=== PATIENT | female | born 1995 | race Caucasian/White ===

== ENCOUNTER 2018-11-06 15:18 | Emergency (ER) | payer OTHER ==
[2018-11-06 15:26] VITALS: TEMP 98.5; BMI 30.9
--- NOTE | 2018-11-06 15:56 | PDOC ---
History of Present Illness - General Chief Complaint: Lightheaded Stated Complaint: DIZZNESS Time Seen by Provider: 11/06/18 15:36 History Source: Patient, [employer] Technician Used (#[id number]) Exam Limitations: Clinical Condition - History of Present Illness Initial Comments: 11/06/18 16:13 Patient with history of migraines present with complaint of 4 day history of headache, dizziness, nausea, increased light sensitivity and lightheadedness. Patient reported she was seen in [place] [facility] 3 days ago for symptoms and discharged home on medication which she does not remember the name but has not been helping with her symptoms. Patient reports she was diagnosed with migraine 3 years ago in the [place] and was treated there for stopped taking the medication because migraine resolved. Patient denies vomiting, shortness of breath, chest pain, fever, chills. Patient denies any other symptoms Timing/Duration: other (4 days) Past History - Past Medical History Allergies/Adverse Reactions: Allergies Allergy/AdvReac Type Severity Reaction Status Date / Time No Known Allergies Allergy Verified 11/06/18 16:05 Home Medications: Ambulatory Orders Meclizine HCl [Antivert -] 25 mg PO QID PRN #28 tablet 11/06/18 Sumatriptan Succinate [Imitrex] 25 mg PO Q6H PRN #20 tablet 11/06/18 COPD: No Dementia: No HTN: No - Surgical History Gastric Stapling: No Neurologic Surgery: No - Immunization History Immunization Up to Date: No - Suicide/Smoking/Psychosocial Hx Smoking History: Never smoked Have you smoked in the past 12 months: No Information on smoking cessation initiated: No Hx Alcohol Use: Yes Drug/Substance Use Hx: No Review of Systems - Review of Systems Able to Perform ROS?: Yes Is the patient limited Faroese proficient: No Constitutional: No: Chills, Fever, Weakness HEENTM: Yes: Symptoms Reported, See HPI, Eye Pain (photosentivity), Nose Congestion. No: Blurred Vision, Tearing, Recent change in vision, Double Vision , Cataracts, Ear Pain, Ocular Prothesis, Ear Discharge, Nose Pain, Tinnitus, Nose Bleeding, Hearing Loss, Throat Pain, Throat Swelling, Mouth Pain, Dental Problems, Difficulty Swallowing, Mouth Swelling, Other Respiratory: No: Symptoms reported, See HPI, Cough, Orthopnea, Shortness of Breath, SOB with Exertion, SOB at Rest, Stridor, Wheezing, Productive cough, Hemoptysis, Other Cardiac (ROS): No: Symptoms Reported, See HPI, Chest Pain, Edema, Irregular Heart Rate, Lightheadedness, Palpitations, Syncope, Chest Tightness, Other ABD/GI: Yes: Nausea, Vomiting. No: Constipated, Diarrhea, Abdominal cramping : No: Dysuria, Frequency Musculoskeletal: No: Muscle Pain Neurological: Yes: See HPI, Headache, Dizziness. No: Numbness, Paresthesia, Seizure, Weakness, Unsteady Gait, Ataxia Psychiatric: No: Sleep Pattern Change, Mood Swings, Change in Appetite All Other Systems: Reviewed and Negative *Physical Exam - Vital Signs Last Vital Signs Temp Pulse Resp BP Pulse Ox 98.5 F 73 18 123/76 100 11/06/18 15:23 11/06/18 15:23 11/06/18 15:23 11/06/18 15:23 11/06/18 15:23 - Physical Exam Comments: 11/06/18 16:16 GENERAL: Well developed, well nourished. Awake and alert. No acute distress. HEENT: Normocephalic, atraumatic. PERRLA, EOMI. No conjunctival pallor. Sclera are non- icteric. Moist mucous membranes. Oropharynx is clear. NECK: Supple. Full ROM. No JVD. Carotid pulses 2+ and symmetric, without bruits. No thyromegaly. No lymphadenopathy. CARDIOVASCULAR: Regular rate and rhythm. No murmurs, rubs, or gallops. Distal pulses are 2+ and symmetric. PULMONARY: No evidence of respiratory distress. Lungs clear to auscultation bilaterally. No wheezing, rales or rhonchi. ABDOMINAL: Soft. Non-tender. Non-distended. No rebound or guarding. No organomegaly. Normoactive bowel sounds. MUSCULOSKELETAL Normal range of motion at all joints. SKIN: Warm and dry. no cyanosis. Normal capillary refill. No rashes. No jaundice. NEUROLOGICAL: Alert, awake, appropriate. Cranial nerves 2-12 intact. No motor deficits in the in face, upper extremities and lower extremities. Normal tendem walking. Normal speech. Toes are down-going bilaterally. Gait is normal without ataxia. PSYCHIATRIC: Cooperative. Good eye contact. Appropriate mood and affect. General Appearance: Yes: Nourished, Appropriately Dressed. No: Apparent Distress Moderate Sedation - Procedure Monitoring Vital Signs: Procedure Monitoring Vital Signs Temperature 98.5 F 11/06/18 15:23 Pulse Rate 73 11/06/18 15:23 Respiratory Rate 18 11/06/18 15:23 Blood Pressure 123/76 11/06/18 15:23 O2 Sat by Pulse Oximetry (%) 100 11/06/18 15:23 ED Treatment Course - LABORATORY CBC & Chemistry Diagram: 11/06/18 16:18 11/06/18 16:18 Medical Decision Making - Medical Decision Making 11/06/18 16:19 Patient with history of migraines present with complaint of 4 day history of headache, dizziness, nausea, increased light sensitivity and lightheadedness. Patient reported she was seen in [place] ED 3 days ago for symptoms and discharged home on medication which she does not remember the name but has not been helping with her symptoms. Patient reports she was diagnosed with migraine 3 years ago in the [facility] [place] and was treated there for stopped taking the medication because migraine resolved Clinical exam unremarkable with normal neuro exam. Lungs clear to auscultation bilateral. Normal ophthalmic exam. CBC chemistry lab ordered. Reglan 10 mg IV ordered for migraine. IV fluid normal saline ordered. Pepcid 20 mg IV ordered. Patient symptoms likely migraine with aura. Patient be discharged home on Imitrex if normal labs with neurology follow-up. 11/06/18 17:30 CBC chemistry and urine labs normal. Patient reported feeling improvement with headache and photophobia after given Reglan and pepcid But reported still have mild dizziness. Meclizine 25 mg by mouth ordered for possible vertigo 11/06/18 18:16 Patient reported feeling much better after meclizine. Patient is stable for discharge on Imitrex as needed for migraine and meclizine for vertigo as needed with neurology follow-up. *DC/Admit/Observation/Transfer Diagnosis at time of Disposition: Nausea, Vertigo Migraine headache with aura Qualifiers: Status migrainosus presence: without status migrainosus Intractability: not intractable Qualified Code(s): G43.109 - Migraine with aura, not intractable, without status migrainosus - Discharge Dispostion Disposition: HOME Condition at time of disposition: Stable Decision to Admit order: No - Prescriptions Prescriptions: Meclizine HCl [Antivert -] 25 mg PO QID PRN #28 tablet PRN Reason: dizziness Sumatriptan Succinate [Imitrex] 25 mg PO Q6H PRN #20 tablet PRN Reason: migraine - Referrals Referrals: Kike Sanhcez MD [Staff Physician] - Daniela Olvera MD [Primary Care Provider] - - Patient Instructions Printed Discharge Instructions: Frovatriptan May Offer Relief From Migraine Pain, Migraine -- Adult, DI for Vertigo Additional Instructions: Your labs was normal. Your symptoms likely from migraine. Take medications as prescribed for migraine. Follow-up referred neurology. Print Language: CYMRO - Post Discharge Activity
[2018-11-06] MEDS ORDERED: METOCLOPRAMIDE HCL INJECTION 10 MG/2 ML VIAL IVPUSH ONE (15:57)
[2018-11-06] MEDS ORDERED: FAMOTIDINE 20 MG/50 ML IVPB 20 MG/50 ML MG IVPB ONE ×2 (15:57→16:06)
[2018-11-06] MEDS ORDERED: SODIUM CHLORIDE 500 ML IV STA (15:58)
--- NOTE | 2018-11-06 16:02 | PDOC ---
*Physical Exam - Vital Signs Last Vital Signs Temp Pulse Resp BP Pulse Ox 98.5 F 73 18 123/76 100 11/06/18 15:23 11/06/18 15:23 11/06/18 15:23 11/06/18 15:23 11/06/18 15:23 Medical Decision Making - Medical Decision Making 11/06/18 16:01 The patient was seen and evaluated in conjunction with MARIE Azar under my direct supervision, ancillary studies were reviewed. I agree with the plan as outlined by MARIE Azar . . *DC/Admit/Observation/Transfer - Discharge Dispostion Condition at time of disposition: Stable - Referrals Referrals: Daniela Olvera MD [Primary Care Provider] - - Patient Instructions - Post Discharge Activity
[2018-11-06] MEDS ORDERED: METOCLOPRAMIDE HCL INJECTION 10 MG/2 ML VIAL ONE (16:06)
[2018-11-06 16:33] LABS: BASO % 1.2 % (0-2.0); EOS % 6.8 % (0-4.5); HEMATOCRIT 36.5 % (32.4-45.2); HEMOGLOBIN 12.7 GM/dL (10.7-15.3); LYMPH % 38.6 % (8-40); MCH 30.7 pg (25.7-33.7); MCHC 34.8 g/dl (32.0-36.0); MEAN CELL VOLUME 88.4 fl (80-96); MEAN PLT VOLUME 8.1 fl (7.5-11.1); MONO % 12.6 % (3.8-10.2); NEUT % 40.8 % (42.8-82.8); PLATELET COUNT 246 K/MM3 (134-434); RBC 4.13 M/mm3 (3.60-5.2); RDW 13.6 % (11.6-15.6); WHITE BLOOD COUNT 4.5 K/mm3 (4.0-10.0)
[2018-11-06 16:40] LABS: URINE APPEARANCE SLCLOUDY; URINE BILIRUBIN NEGATIVE (<2.0 mg/dL); URINE COLOR YELLOW; URINE GLUCOSE (UA) NEGATIVE (NEGATIVE); URINE KETONE NEGATIVE (NEGATIVE); URINE LEUK ESTERASE NEGATIVE (NEGATIVE); URINE NITRITE NEGATIVE (NEGATIVE); URINE PROTEIN 1+ (NEGATIVE); URINE UROBILINOGEN NEGATIVE mg/dL (0.2-1.0)
[2018-11-06 16:41] LABS: HCG,QUALITATIVE URINE Negative
[2018-11-06 16:43] LABS: EPI CELLS RARE /HPF (FEW); URINE MUCUS RARE
[2018-11-06 16:52] LABS: ALBUMIN 3.7 g/dl (3.4-5.0); ALK PHOS 73 U/L (45-117); ANION GAP 5 MMOL/L (8-16); BILIRUBIN,TOTAL 0.2 mg/dL (0.2-1); BLOOD UREA NITROGEN 14 mg/dL (7-18); CALCIUM 8.3 mg/dL (8.5-10.1); CHLORIDE 107 mmol/L (98-107); CO2 28 mmol/L (21-32); CREATININE 0.6 mg/dL (0.55-1.3); GLUCOSE,RANDOM 95 mg/dL (74-106); POTASSIUM 4.4 mmol/L (3.5-5.1); SGOT/AST 13 U/L (15-37); SGPT/ALT 16 U/L (13-61); SODIUM 140 mmol/L (136-145); TOT PROT 7.6 g/dl (6.4-8.2)
[2018-11-06] MEDS ORDERED: MECLIZINE HCL 25 MG TABLET (FP) PO ONE (17:29)
[2018-11-06] MEDS ORDERED: MECLIZINE HCL 25 MG TABLET (FP) ONE (17:46)
[2018-11-06 18:18] VITALS: BP 126/68; PULSE 69
== END 2018-11-06 18:17 | disposition home or self-care (01) ==
LOC: JER 15:18
PROC: 3E033GC Introduction of Other Therapeutic Substance into Peripheral Vein, Percutaneous Approach (ICD-10-PCS; principal; 2018-11-06)
PROC: 3E033GC Introduction of Other Therapeutic Substance into Peripheral Vein, Percutaneous Approach (ICD-10-PCS; 2018-11-06)
DX: G43.109 Migraine with aura, not intractable, without status migrainosus (principal)
CPT/HCPCS: 36415; 80053; 81003; 81015; 84703; 85025; 87086; 96365; 96375; 99283-25